=== PATIENT | male | born 1980 | race Caucasian/White ===

== ENCOUNTER 2020-07-12 17:14 | Emergency (ER) | payer SELFPAY ==
[~2020-07-12] VITALS: Ht 167.6 cm; Wt 72.1 kg
[2020-07-12 17:25] VITALS: BP 142/75
--- NOTE | 2020-07-12 17:50 | NUR ---
MARSHALL COOPER MD MADE AWARE.
--- NOTE | 2020-07-12 18:43 | NUR ---
40/M presents to ED with c/o bump on chest and rectum. Patient states he noticed a bump on his chest one week ago and two days a bump near his rectum. Bump noted near rectum, patient states is tender to touch. Patient denies taking anything at home for pain, states pain is only felt when he attempts to have a bowel movement, states itchiness occurs when walking. Patient denies abdominal pain, nausea, vomiting, diarrhea, dysuria or hematuria. Patient able to ambulate without assistance.
--- NOTE | 2020-07-12 19:08 | NUR ---
Pt report given to Joseluis. Transfer of care at this time.
--- NOTE | 2020-07-12 19:09 | NUR ---
Dr. Bustillo and JANIE Bonilla with pt for MSE
[2020-07-12] MEDS ORDERED: HYDR-2734 TP (19:11)
[2020-07-12] MEDS ORDERED: DOCU-299 PO (19:11)
[2020-07-12] MEDS ORDERED: GLYPS RC (19:11)
[2020-07-12] MEDS ORDERED: SULF-58 PO (19:11)
[2020-07-12 19:28] VITALS: BP 138/66
--- NOTE | 2020-07-12 19:46 | NUR ---
pt d/c with [facility]. d/c education given. opportunity to ask questions given and answered. rx of glycerin, colace, hydrocortisone, and bactrim given.
== END 2020-07-12 19:46 | disposition home or self-care (01) ==
LOC: MED 17:14
DX: K64.9 Unspecified hemorrhoids (principal); K59.00 Constipation, unspecified; Z79.899 Other long term (current) drug therapy
CPT/HCPCS: 99284